=== PATIENT | male | born 1940 | race Caucasian/White ===

== ENCOUNTER 2018-07-19 05:29 | Day surgery (SDC) | payer BC, OTHER ==
[2018-07-19] MEDS ORDERED: LR 1,000 ML IV ONE (05:49)
[2018-07-19] MEDS ORDERED: THROMBIN (BOVINE) 5,000 UNIT VIAL TP ONE (06:29)
[2018-07-19] MEDS ORDERED: BUPIVACAINE/EPI 0.25% 30 ML SDV ONE (06:29)
[2018-07-19] MEDS ORDERED: BACITRACIN 50,000 UNITS/10 ML SYR IRR ONE (06:30)
[2018-07-19] MEDS ORDERED: ACETAMINOPHEN 500 MG TAB PO ONE (07:00)
[2018-07-19] MEDS ORDERED: ceFAZolin 2 GM/DEXTROSE 100 ML IV ONE (07:00)
[2018-07-19] MEDS ORDERED: REMIFENTANIL HCL 1 MG VIAL ONE (07:04)
[2018-07-19] MEDS ORDERED: CHLORHEXIDINE GLUC HIBICLENS 118 ML BTL TP ONE (07:06)
[2018-07-19] MEDS ORDERED: fentaNYL 100 MCG/2 ML INJ ONE (07:06)
[2018-07-19] MEDS ORDERED: DEXAMETHASONE 4 MG/ML VIAL ONE ×2 (07:07)
[2018-07-19] MEDS ORDERED: PROPOFOL/EMULSION 500 MG/50 ML BOTTLE IV ONE ×2 (07:07→07:54)
[2018-07-19] MEDS ORDERED: ROCURONIUM 50 MG/5 ML VIAL ONE (07:07)
[2018-07-19] MEDS ORDERED: LIDOCAINE 2% 100 MG/5 ML SYR ONE (07:07)
--- NOTE | 2018-07-19 07:07 | PDANEPAE ---
ANE Past Medical History - Cardiovascular History Hx Hypertension: No Hx Arrhythmias: Yes Hx Chest Pain: No Hx Coronary Artery / Peripheral Vascular Disease: Yes Hx CHF / Valvular Disease: No Hx Palpitations: No Cardiovascular History Comment: heart stents, 2016. afib, on xarelto - Pulmonary History Hx COPD: No Hx Asthma/Reactive Airway Disease: No Hx Recent Upper Respiratory Infection: No Hx Oxygen in Use at Home: No Hx Sleep Apnea: No Sleep Apnea Screening Result - Last Documented: Negative - Neurologic History Hx Cerebrovascular Accident: No Hx Seizures: No Hx Dementia: No Neurologic History Comment: hx injections for lumbar issues - Endocrine History Hx Diabetes: No - Renal History Hx Renal Disorders: No - Liver History Hx Hepatic Disorders: No - Neurological & Psychiatric Hx Hx Neurological and Psychiatric Disorders: Yes Neurological / Psychiatric History Comment: depression - Cancer History Hx Cancer: No - Congenital Disorder History Hx Congenital Disorders: No - GI History Hx Gastrointestinal Disorders: No - Other Health History Other Health History: weas glasses for reading. bilateral lumbar pain. lower plate - Chronic Pain History Chronic Pain: Yes (low back) - Surgical History Prior Surgeries: bilateral knee scopes. left shoulder scope. tonsillectomy. heart stents ANE Review of Systems Review of Systems: - Exercise capacity METS (RN): 4 METS ANE Patient History - Allergies Allergies/Adverse Reactions: No Known Allergies Allergy (Verified 07/14/18 10:35) - Home Medications Home Medications: Aspirin 81mg (*) 07/14/18 [Last Taken 07/15/18] Metoprolol Tartrate 07/14/18 [Last Taken 07/19/18] Sertraline HCl 07/14/18 [Last Taken 07/19/18] Simvastatin 07/14/18 [Last Taken 07/19/18] Xarelto 07/14/18 [Last Taken 07/15/18] - NPO status NPO Since - Liquids (Date): 07/19/18 NPO Since - Liquids (Time): 03:30 NPO Since - Solids (Date): 07/18/18 NPO Since - Solids (Time): 17:00 - Smoking Hx Smoking Status: Former smoker - Family Anes Hx Family Hx Anesthesia Complications: none ANE Labs/Vital Signs - Vital Signs Blood Pressure: 178/98 Heart Rate: 56 Respiratory Rate: 16 O2 Sat (%): 95 Height: 182.88 cm Weight: 99.79 kg ANE Physical Exam - Airway Neck exam: decreased ROM Mallampati Score: Class 2 Mouth exam: dentures - Pulmonary Pulmonary: no respiratory distress - Cardiovascular Cardiovascular: regular rate and rhythym - ASA Status ASA Status: III ANE Anesthesia Plan Anesthesia Plan: general endotracheal anesthesia
--- NOTE | 2018-07-19 07:11 | PDHPUP ---
History & Physical Update H&P update statement: This history and physical update is based on an assessment of the patient which was completed after admission or registration (within 24 hours), but prior to the surgery/procedure. H&P update: H&P reviewed & patient examined, no change in patient's condition since H&P completed
[2018-07-19] MEDS ORDERED: NALOXONE HCL 0.4 MG/ML INJ IVP PRN (07:47)
[2018-07-19] MEDS ORDERED: ALBUTEROL 3 ML DEYVIAL IH PRN (07:47)
[2018-07-19] MEDS ORDERED: fentaNYL 100 MCG/2 ML INJ IVP PRN (07:47)
[2018-07-19] MEDS ORDERED: HYDROCODONE/APAP 5/325 TAB PO PRN ×2 (07:53→09:02)
[2018-07-19] MEDS ORDERED: ONDANSETRON 4 MG/2 ML VIAL IVP PRN (07:53)
[2018-07-19] MEDS ORDERED: SUGAMMADEX SODIUM 200 MG/2 ML VIAL IVP ONE (08:29)
--- NOTE | 2018-07-19 08:51 | POSTANESTH ---
Post Anesthetic Evaluation Cardiovascular Status: Similar to Pre-Op Cond Respiratory Status: Similar to Pre-op Cond. Level of Consciousness/Mental Status: Mildly Sleepy, Arousable Pain Control: Adequate, Prn Tx Ordered Nausea/Vomiting Control: Adequate, Prn Tx Ordered Complications Possibly Related to Anesthesia: None Noted
--- NOTE | 2018-07-19 09:16 | POSTOPPROG ---
Post Op Note Date of Operation: 07/19/18 Surgeon: Edin Riggs Slot Manager: Moni Puentes Anesthesia: GET(General Endotracheal) Pre-op Diagnosis: Lumbar stenosis with claudication Post-op Diagnosis: same Procedure: L2/3 minimally invasive laminectomy Inf/Abcess present in the surg proc area at time of surgery?: No EBL: Minimal Complications: None observed SOAP Progress Note Assessment/Plan: Assessment: Plan: 07/19/18 09:13 S: Patient stable, in PACU with expected back pain O: NAD, VSS PERR, EOMI Awake, following commands RASCON x4 BLE 5/5= Sensation intact to lt touch Incisions X2- c/d/i- dermabond glue in place A: -Discharge home from PACU when PACU criteria met -No bending at the waist, twisting, or lifting more than 5-10 pounds -Advance diet as tolerated -Activity as tolerated -Seen by as well in PACU -SCripts on chart to go home DC instructions in DC area Objective: Vital Signs Temp Pulse Resp BP Pulse Ox 36.6 C 56 L 16 178/98 H 95 07/19/18 06:05 07/19/18 07:07 07/19/18 07:07 07/19/18 07:07 07/19/18 07:07
[2018-07-19] MEDS ORDERED: METHOCARBAMOL 750 MG TAB ONE (09:38)
[2018-07-19 10:46] VITALS: BP 151/72
--- NOTE | 2018-07-19 11:12 | GOP ---
DATE OF OPERATION: 07/19/2018 SURGEON: Edin Riggs MD NEUROSURGEON: Edin Riggs MD FLIGHT ATTENDANT INFLIGHT SERVICES: Moni Willson PA-C ANESTHESIA: General endotracheal. PREOPERATIVE DIAGNOSIS: Lumbar stenosis at L2-3. POSTOPERATIVE DIAGNOSIS: Lumbar stenosis at L2-3. PROCEDURE PERFORMED: 1. L2-3 minimally invasive lumbar laminectomy for decompression of cauda equina. 2. Use of the operative microscope. 3. Stealth/O arm stereotactic navigation for tubular retractor placement. 4. Intraoperative neurophysiologic monitoring, including somatosensory evoked potentials and EMG. FINDINGS: Successful lumbar laminectomy. SPECIMENS: There were no specimens. ESTIMATED BLOOD LOSS: 25 cc. INDICATIONS: The patient is a 77-year-old man who presented with bilateral hip and thigh pain sugges tive of neurogenic claudication. He saw my partner, Dr. Pritchett, who noted [id number] lumbar stenosis at L2-3. Patient wanted minimally invasive surgery; therefore, he came to see me. We discu ssed the risks and benefits of surgery, and he presents electively today for this procedure. DESCRIPTION OF PROCEDURE: After informed consent was obtained from the patient, the patient was brou ght to the operating room and a formal time-out was performed, identifying the patient by name, medic al record number, and date of . Preoperative antibiotics were given. The endotracheal tube was placed and general endotracheal anesthesia was smoothly induced. All appropriate leads were placed for intraoperative neurophysiologic monitoring. The patient was then turned to the prone position on the Marin table and all appropriate pressure points were padded and checked. The lumbar region wa s prepped and draped in normal sterile fashion. A stab incision was made over the right iliac crest. The percutaneous navigation pin was placed into the iliac crest, and the navigation frame was attached. The patient was then draped and O arm spin was obtained showing the relevant anatomy from L1-S1. Using the navigation, we then planned the 1.5 cm incision in the midline over the L2-3 interspace. 10 cc of 0.25% Marcaine with epinephrine was in filtrated in the skin for hemostasis. The skin incision made using a 10 blade and the subcutaneous tissues were dissected using monopolar e lectrocautery. The fascia was opened just to the left of the midline and the METRx tubular dilators were then used to dilate up to a 22 mm tube docked onto the lamina of L2. The 6 cm x 22 mm quadrant tube was then placed onto the L2 lamina and opened. The muscle was debrided from the lamina and the extent of the hemilaminotomy was explored using navigation. The high-speed drill with a 3 mm sandy bur was then used to drill a hemilaminotomy defect and also to drill the undersurface of the right-s ided lamina all the way over into the lateral recess. At this point, the yellow ligament was opened and removed using Kerrison punches. There was a lot of epidural fat in the area, which seemed to be somewhat compressive as well of the thecal sac. We continued removing the yellow ligament, both ipsi laterally and contralaterally completely decompressing bilateral lateral recesses and the central can al. The fat was also resected and this allowed for good canal decompression. At this point, the wound was copiously irrigated using bacitracin irrigation. Any bleeding was contr olled using FloSeal. The bleeding from the muscles was controlled using bipolar electrocautery. The fascia was closed using interrupted 0 Vicryl. The deep dermis was closed using interrupted 0 Vicryl , and the skin was closed using Dermabond. The percutaneous pin was removed. Sterile dressings were placed. The patient was awakened in the operating room where he was extubated and was transferred t o the PACU in stable condition. There were no operative complications. I was scrubbed and present f or the entire procedure. All sponge and needle counts were correct at the end of the case. FLUIDS/URINE OUTPUT: Per the anesthesia record. DRAINS: There were no drains. MONITORING: All neurophysiological monitoring was stable throughout the case. /[id number]/MODL
[2018-07-19] MEDS ORDERED: METHOCARBAMOL 750 MG TAB PO SCH (16:00)
== END 2018-07-19 10:44 | disposition home or self-care (01) ==
LOC: FSGY 05:29
PROVIDERS: ATTEND Neurological Surgery
PROC: 00NY0ZZ Release Lumbar Spinal Cord, Open Approach (ICD-10-PCS; principal; 2018-07-19 07:15)
DX: M48.062 Spinal stenosis, lumbar region with neurogenic claudication (principal); I25.10 Atherosclerotic heart disease of native coronary artery without angina pectoris; R78.2 Finding of cocaine in blood; I48.0 Paroxysmal atrial fibrillation
CPT/HCPCS: J0690; J1100; J2001; J2704; J3010